=== PATIENT | male | born 1965 | race Caucasian/White ===

== ENCOUNTER 2016-08-02 23:50 | Emergency (ER) | payer BC ==
[~2016-08-02 23:50] MED LIST: ASAB PO; BYDUREON2 MG SQ; COZAAR100 MG PO; DRAMAMINE25 MG PO; FLEX PO; FLOMAX4 PO; GLUCOPHAGE1000 MG PO; HCTZ25B PO; INSNOV7030 SC; LANTUS SC; LOP100 PO; NITROQUICK0.4 MG SL; NITROSTAT0.4 MG SL; NOVOLOGMIX SC; PAX10 PO; PERCOCET1 TA4 PO; PR25 PO; PRAVAC PO; PRIN10 PO; SOMATAB PO; SPIRO25 PO; XANAX1 MG PO
== END 2016-08-03 02:28 | disposition home or self-care (01) ==
LOC: ER 23:50
DX: S46.911A Strain of unspecified muscle, fascia and tendon at shoulder and upper arm level, right arm, initial encounter (principal); I10 Essential (primary) hypertension; K21.9 Gastro-esophageal reflux disease without esophagitis; F41.9 Anxiety disorder, unspecified; F32.9 Major depressive disorder, single episode, unspecified; E11.9 Type 2 diabetes mellitus without complications; M19.90 Unspecified osteoarthritis, unspecified site; Z88.0 Allergy status to penicillin; Z88.5 Allergy status to narcotic agent; Z79.4 Long term (current) use of insulin; Z79.82 Long term (current) use of aspirin; X58.XXXA Exposure to other specified factors, initial encounter
CPT/HCPCS: 73030-RT; 99283; A9270-GY